=== PATIENT | female | born 1970 | race Caucasian/White ===

== ENCOUNTER → 2018-10-10 | Outpatient (CLI) | payer OTHER ==
--- NOTE | 2018-10-11 10:23 | RADONC ---
RADIATION ONCOLOGY CONSULTATION NOTE DATE: 10/10/2018 CHART NUMBER: [id number] DIAGNOSIS: Left breast cancer. STAGE: IB, pT1b,N0 (i+), (sn), M0, grade 3, ER positive, IA negative, HER2 negative, Oncotype score of 53. ECOG PERFORMANCE STATUS: 0. CONSULTATION NOTE: Ms. Lovett is a very pleasant 47-year-old white female with the diagnosis what appears to be a Stage IB, pT1b,N0 (i+), (sn), M0, poorly differentiated, grade 3 infiltrating ductal carcinoma of the left breast which is the ER positive, IA negative, and HER2 negative with Oncotype score of 53 who is presenting to us today status post lumpectomy, re-excision, axillary dissection, and chemotherapy consisting of aggressive TC who is presenting to us today for consideration of postoperative radiation therapy for conservative breast management. HISTORY OF PRESENT ILLNESS: The patient was in the usual state of health until October of 2017 when she was first found to have bilateral breast nodules. Bilateral breast core biopsies were performed and the only fibroadenomas were found. In May 2018 she underwent bilateral diagnostic breast ultrasound which revealed a 1.7 cm mass in the 3 o'clock position of the left breast. On July 05, 2018 she underwent lumpectomy and sentinel lymph node biopsy. Pathology revealed a 0.9 to 1 cm poorly differentiated invasive ductal carcinoma. The invasive carcinoma was present at the lateral margin. One sentinel lymph node sample was positive for one cytokeratin positive cell. Three further lymph nodes were sampled and were negative for malignancy. The tumor was therefore pathologically staged as a small pT1b, N0, (i+) (sn). On 07/22/2018 the patient underwent re-excision and no further malignancy was seen. The patient was then seen by Dr. Michelle and underwent adjuvant TC chemotherapy and has been doing fine on that. Her final chemo is scheduled for October 18. She is now presenting to me for discussion of postoperative radiation therapy as a therapeutic option. PAST MEDICAL HISTORY: The patient's past medical history is positive for hysterectomy completed at the age of 38. ALLERGIES: The patient is allergic to LATEX. SOCIAL HISTORY: The patient does not smoke cigarettes nor abuse alcohol. FAMILY HISTORY: The patient's family history is positive for an uncle with bladder cancer as well as lung cancer and an aunt with lung cancer. REVIEW OF SYSTEMS: The patient's review of systems is noncontributory. She denies nausea, vomiting, fevers, chills, night sweats, diplopia, headaches, anxiety or depression, anorexia, weight loss, visual disturbances, chest pain, urinary or bowel difficulties, bone pain, or neurological problems. PHYSICAL EXAMINATION: The patient is a well-developed, well-nourished, female in no acute distress. HEENT exam is normocephalic, atraumatic. Extraocular movements are intact. There is no palpable cervical, supraclavicular, infraclavicular, axillary, or inguinal lymphadenopathy present. Lungs are clear to auscultation and percussion. Heart has a regular rate and rhythm. Abdomen is benign with no hepatosplenomegaly, masses, or tenderness. Breast examination reveals no masses or discharge bilaterally. Skeletal examination reveals no tenderness to pressure or percussion of the bony skeleton. Extremities reveal no clubbing, cyanosis, or edema. Neurologic exam is grossly intact, as is the remainder of the physical examination. ASSESSMENT: Clearly the patient is a candidate for external beam radiation therapy and I have so informed her. I have discussed with the patient in detail the potential benefits as well as possible acute and chronic sequelae of external beam radiation therapy. We discussed logistics of treatment planning, simulation and subsequent fractionated daily radiation treatments. I have scheduled the patient for simulation and radiation treatments will follow. Thank you for allowing us to participate in the care of this very pleasant woman. If I could be of any further assistance or provide you with any information, please free to contact me anytime. cc: MD Kimberly Robles MD
== END ==
LOC: M ONCR 08:45
PROVIDERS: ATTEND Radiology Radiation Oncology
DX: C50.912 Malignant neoplasm of unspecified site of left female breast (principal)

== ENCOUNTER → 2018-11-28 | Outpatient (RCR) | payer OTHER ==
--- NOTE | 2018-11-07 09:29 | RADONC ---
RADIATION ONCOLOGY SIMULATION NOTE: DATE: DATE OF SERVICE: CHART NUMBER: [id number] Ms. Lovett was taken to the simulator today for CT simulation of her left breast field. CT was accomplished without difficulty or discomfort. Radiation treatment planning is underway and treatments will begin subsequently. An immobilization device was created without difficulty or discomfort. It will be used throughout the course of treatment. I was physically present throughout the course of CT simulation.
--- NOTE | 2018-11-23 07:43 | RADONC ---
RADIATION ONCOLOGY PROGRESS NOTE DATE: 11/21/2018 CHART #: [id number] Ms. Lovett is presently at a dose of 360 cGy to her left breast and is tolerating treatments quite well at this point with no complaints related to her radiation therapy. She has no breast or discomfort or other problems. REVIEW OF SYSTEMS: The patient's review of systems is noncontributory. Denies nausea, vomiting, fevers, chills, night sweats, diplopia, headaches, anxiety or depression, anorexia, weight loss, visual disturbances, chest pain, urinary or bowel difficulties, bone pain, or neurological problems. PHYSICAL EXAMINATION: The patient's skin is in good condition with no evidence of moist or dry desquamation. The remainder of her physical exam remains unchanged. Ms. Lovett is tolerating treatments quite well and radiation will continue as scheduled.
--- NOTE | 2018-11-29 08:21 | RADONC ---
RADIATION ONCOLOGY PROGRESS NOTE DATE: 11/27/2018 CHART #: [id number] Ms. Lovett is presently at a dose of 1080 cGy to her left breast and is tolerating treatments quite well at this point with no complaints related to radiation therapy. She is having no breast or bone pain. REVIEW OF SYSTEMS: The patient's review of systems is noncontributory. Denies nausea, vomiting, fevers, chills, night sweats, diplopia, headaches, anxiety or depression, anorexia, weight loss, visual disturbances, chest pain, urinary or bowel difficulties, bone pain, or neurological problems. PHYSICAL EXAMINATION: The patient's skin is in good condition with no evidence of moist or dry desquamation. The remainder of her physical exam remains unchanged. Ms. Lovett is tolerating treatments quite well and radiation will continue as scheduled.
== END ==
LOC: M ONCR 11-07 08:57
PROVIDERS: ATTEND Radiology Radiation Oncology
DX: C50.412 Malignant neoplasm of upper-outer quadrant of left female breast (principal)

== ENCOUNTER → 2018-12-29 | Outpatient (RCR) | payer OTHER ==
--- NOTE | 2018-12-04 15:01 | RADONC ---
RADIATION ONCOLOGY PROGRESS NOTE DATE: 12/04/2018 CHART NUMBER: [id number] PROGRESS NOTE: Ms. Lovett is presently at a dose of 1800 cGy to her left breast and was last treated on 12/01/2018. The patient was not treated today secondary to machine breakdown. As of Tuesday, the patient had been tolerating her treatments quite well with no difficulties related to her radiation therapy. REVIEW OF SYSTEMS: The patient's review of systems at that time was noncontributory. Denied nausea, vomiting, fevers, chills, night sweats, diplopia, headaches, anxiety or depression, anorexia, weight loss, visual disturbances, chest pain, urinary or bowel difficulties, bone pain, or neurological problems. PHYSICAL EXAMINATION: On Tuesday, the patient's skin was in good condition with no evidence of moist or dry desquamation. The remainder of her physical exam remained unchanged. Ms. Lovett had been tolerating her treatments quite well, and she is scheduled to resume radiation tomorrow if the machine is working.
--- NOTE | 2018-12-11 16:30 | RADONC ---
RADIATION ONCOLOGY PROGRESS NOTE DATE: 12/11/2018 CHART NUMBER: [id number] PROGRESS NOTE: Mrs. Lovett is a lady who has a known diagnosis of stage I B left-sided breast cancer. She is currently receiving local regional radiotherapy and has achieved a dose of 2700 cGy of an anticipated 4860 cGy to the entire breast to be followed by an additional boost to the lumpectomy scar site with an electron beam. After the boost this would bring the lumpectomy site up to a dose of 5940 cGy. Thus far, she is tolerating her radiotherapy reasonably well. REVIEW OF SYSTEMS: She denies any nausea, vomiting, coughing, sputum production or hemoptysis. Her energy level is such that she is able to maintain most of her day-to-day activities without any alteration of her lifestyle. She does notice a minimal amount of skin irritation. The remainder of the review of systems is noncontributory. EXAMINATION FINDINGS: Skin within the irradiated volume shows a minimal erythematous blush around the nipple. There is no evidence of moist desquamation. Lymphatics: No palpable peripheral lymphadenopathy. The remainder of the physical examination is unchanged. IMPRESSION: Tolerating therapy well. PLAN: Treatments to continue and she was advised as to skin care and was given samples of Aquaphor. MYROND
--- NOTE | 2018-12-18 15:16 | RADONC ---
RADIATION ONCOLOGY PROGRESS NOTE DATE: 12/18/2018 CHART NUMBER: [id number] Ms. Lovett is presently at a dose of 3600 cGy to her left breast and is tolerating treatments quite well at this point with no complaints related to her radiation therapy. She is having no breast or bone pain. The patient's review of systems is noncontributory. She denies nausea, vomiting, fevers, chills, night sweats, diplopia, headaches, anxiety or depression, anorexia, weight loss, visual disturbances, chest pain, urinary or bowel difficulties, bone pain, or neurological problems. PHYSICAL EXAMINATION: The patient's skin is in good condition with no evidence of moist or dry desquamation. The remainder of her physical exam remains unchanged. Ms. Lovett is tolerating treatments quite well and radiation will continue as scheduled.
--- NOTE | 2018-12-23 11:26 | RADONC ---
RADIATION ONCOLOGY SIMULATION NOTE DATE: 12/22/2018 CHART #: [id number] Ms. Lovett was taken to the linear accelerator today for clinical setup of her electron beam left breast boost field. Setup was accomplished without difficulty or discomfort. Radiation treatment planning is underway and radiation treatments will begin subsequently. An immobilization device was created without difficulty or discomfort. It will be used throughout the course of treatment. I was physically present throughout the course of simulation.
--- NOTE | 2018-12-27 07:41 | RADONC ---
RADIATION ONCOLOGY PROGRESS NOTE DATE: 12/26/2018 CHART #: [id number] Ms. Lovett is presently at a dose of 4500 cGy to her left breast and is tolerating treatments quite well at this point with no significant difficulties related to her radiation therapy other than some skin discomfort. REVIEW OF SYSTEMS: The patient's review of systems is positive for skin discomfort, but is otherwise noncontributory. Denies nausea, vomiting, fevers, chills, night sweats, diplopia, headaches, anxiety or depression, anorexia, weight loss, visual disturbances, chest pain, urinary or bowel difficulties, bone pain, or neurological problems.. PHYSICAL EXAMINATION: The patient's skin is in good condition with no evidence of moist or dry desquamation. In the inframammary region, there is some erythema and tanning present. The remainder of the physical exam remains unchanged. Ms. Lovett is tolerating treatments quite well and radiation will continue as scheduled.
[~2018-12-29] MED LIST: SILV40CR EXT
== END ==
LOC: M ONCR 11-29 14:02
PROVIDERS: ATTEND Radiology Radiation Oncology
DX: C50.412 Malignant neoplasm of upper-outer quadrant of left female breast (principal)

== ENCOUNTER 2019-01-05 14:02 | Outpatient (RCR) | payer OTHER ==
--- NOTE | 2019-01-02 09:02 | RADONC ---
RADIATION ONCOLOGY PROGRESS NOTE DATE OF SERVICE: 01/01/2019 CHART NUMBER: [id number]. PROGRESS NOTE: Mrs. Lovett with a diagnosis of breast cancer involving the left breast stage IB is currently receiving local regional radiotherapy (adjuvant). Her current dose is 4680 cGy to the entire breast which incidentally she has completed, and she currently received 360 cGy of an anticipated 1080 cGy boost to the lumpectomy scar site. Treatments are going well. REVIEW OF SYSTEMS: She denies any nausea, vomiting, coughing, sputum production, hemoptysis, chills, night sweats, diplopia, headaches, anxiety, depression, anorexia, weight loss, visual disturbances, chest pain, urinary or bowel difficulties, bone pain, neurologic problems, or significant skin irritation. She did have some moderate irritation in the inframammary folds, and she has a prescription for Silvadene cream to use on a p.r.n. basis. EXAMINATION FINDINGS: The skin within the irradiated volume shows some patchy desquamation in the inframammary folds, along with tanning and erythematous changes. The remainder of the physical examination remains unchanged. IMPRESSION: Tolerating therapy reasonably well. PLAN: Treatments to continue.
--- NOTE | 2019-01-07 13:53 | RADONC ---
RADIATION THERAPY TREATMENT SUMMARY DATE OF SERVICE: 01/05/2019 CHART NUMBER: [id number]. DIAGNOSIS: Left breast cancer. STAGE: IB, pT1B, N0 (i plus), (sn) M0, grade 3, ER positive, MS negative, HER2/leigh ann negative. Oncotype score 53. ECOG PERFORMANCE STATUS : Zero. TREATMENT SUMMARY: Plan of radiotherapy, adjuvant local regional radiotherapy, given to the left breast. Date radiotherapy started 11/20/2018. The radiotherapy completed 01/05/2019. Dose: The patient received a total of 4860 cGy delivered to the entire breast in 28 fractions over 38 elapsed days. This dose was administered via a three-dimensional conformal radiotherapy technique with 180 cGy given daily for 27 fractions with a 6 MV photon beam. Thereafter, the patient underwent a boost to the lumpectomy scar site for an additional 1080 cGy administered in six fractions, 180 cGy per fraction times six treatments with a depth assessed at the 90% isodose line, utilizing a 12 MeV electron beam. Prior to treatment delivery, localization was accomplished via our CT simulator and treatment portals defined by the use of multiple leaf collimators except in the case of her electron beam boost, where the treatments were given en face with the electron beam. Status of tumor: There was no evidence of local regional recurrence nor clinical evidence of distant metastatic spread during her course of radiotherapy. Tolerance and general treatments were relatively well tolerated, as she denied any nausea, vomiting, coughing, sputum production, or hemoptysis. Her energy level remained fairly stable during her radiotherapy, and she was able to maintain most day-to-day activities without any alteration of her lifestyle. Major skin irritation, such as desquamation, was not observed but rather patchy desquamation within the inframammary folds. She was treated conservatively with Aquaphor and given Silvadene cream. DISPOSITION: Return to clinic in 1 month for postradiotherapy followup visit, and she was instructed to return to her referring physicians as per their directions and instructions. Thank you for allowing us the opportunity of participation in the management of this very fine patient. cc: MD Kimberly Robles MD
== END 2019-01-28 ==
LOC: M ONCR 14:02
PROVIDERS: ATTEND Radiology Radiation Oncology
DX: C50.412 Malignant neoplasm of upper-outer quadrant of left female breast (principal)